=== PATIENT | female | born 1940 | race American Indian/Alaskan Native ===

== ENCOUNTER 2017-01-09 20:41 | Emergency (ER) | payer MEDICARE ==
[2017-01-09] MEDS ORDERED: BABY ASPIRIN PO ONE (21:22)
--- NOTE | 2017-01-09 21:23 | Emergency Department Report ---
ED Chest Pain HPI - General Chief Complaint: Chest Pain Stated Complaint: CHEST PAIN Time Seen by Provider: 01/09/17 21:21 Source: patient Mode of arrival: Stretcher Limitations: No Limitations - History of Present Illness Initial Comments: Patient is a 76-year-old woman, poor historian, with a h/o HTN, CAD, HLD, and psychiatric issues, coming from [facility] complaining of chest pain. Patient reports that the chest pain started around 8 PM while she was sitting, pain is left-sided, intermittent, with no radiation or migration. Currently patient reports the chest pain has resolved. Associated nausea no vomiting. Otherwise no fevers, chills, PHILIPPE, dizziness, vomiting, SOB, abd pain, extremity pain, diaphoresis, travel, or sick contacts. Patient's meds: Lipitor Xarelto Toprol Vistaril Triage sheet from [facility] reports patient had chest pain radiating to the L arm, however, patient denies L arm pain - Related Data Allergies Allergy/AdvReac Type Severity Reaction Status Date / Time No Known Allergies Allergy Verified 01/09/17 21:10 Heart Score - HEART Score History: Slightly suspicious EKG: Normal Age: > 65 Risk factors: > 3 risk factors or hx of atherosclerotic disease Troponin: < normal limit HEART Score: 4 ED Review of Systems ROS: Stated complaint: CHEST PAIN Other details as noted in HPI Comment: All other systems reviewed and negative ED Past Medical Hx - Past Medical History Previous Medical History?: Yes Hx Hypertension: Yes Hx Psychiatric Treatment: Yes - Surgical History Past Surgical History?: Yes Hx Coronary Stent: Yes - Social History Smoking Status: Never Smoker Substance Use Type: None ED Physical Exam - General Limitations: No Limitations General appearance: alert, in no apparent distress - Head Head exam: Present: atraumatic, normocephalic - Eye Eye exam: Present: normal appearance - ENT ENT exam: Present: mucous membranes moist - Neck Neck exam: Present: normal inspection - Respiratory Respiratory exam: Present: normal lung sounds bilaterally. Absent: respiratory distress - Cardiovascular Cardiovascular Exam: Present: regular rate, normal rhythm. Absent: systolic murmur, diastolic murmur, rubs, gallop - GI/Abdominal GI/Abdominal exam: Present: soft, normal bowel sounds - Extremities Exam Extremities exam: Present: normal inspection - Back Exam Back exam: Present: normal inspection - Neurological Exam Neurological exam: Present: alert, oriented X3 - Psychiatric Psychiatric exam: Present: normal affect, normal mood - Skin Skin exam: Present: warm, dry, intact, normal color. Absent: rash ED Course Vital Signs 01/09/17 01/10/17 21:11 02:46 Temperature 98 F Pulse Rate 61 74 Respiratory 16 16 Rate Blood Pressure 165/62 Blood Pressure 147/62 [Left] O2 Sat by Pulse 98 95 Oximetry TITI score - Titi Score Age > 65: (1) Yes Aspirin use within the Past 7 Days: (0) No 3 or more CAD Risk Factors: (1) Yes 2 or more Angina events in past 24 hrs: (0) No Known CAD with more than 50% Stenosis: (0) No Elevated Cardiac Markers: (0) No ST Deviation Greater than 0.5mm: (0) No TITI Score: 2 ED Medical Decision Making - Lab Data Result diagrams: 01/09/17 21:42 01/09/17 21:42 - EKG Data -: EKG Interpreted by Me - EKG Data 01/09/17 21:23 EKG 2100, normal sinus rhythm at 63 bpm, QTC 401 ms, normal axis, no LVH, no ST changes, no STEMI - Radiology Data Radiology results: report reviewed, image reviewed CXR: No acute cardiopulmonary disease as visualized by me - Medical Decision Making Pt has had no chest pain in the ED Troponins negative x 2 6 hrs apart. Pt to follow up with PMD/ Director Trial Critical care attestation.: If time is entered above; I have spent that time in minutes in the direct care of this critically ill patient, excluding procedure time. ED Disposition Clinical Impression: Chest wall pain Disposition: DC-01 TO HOME OR SELFCARE Is pt being admited?: No Condition: Stable Instructions: Chest Pain (ED)
[2017-01-09 22:04] LABS: Eosinophils % (Auto) 2.2 % (0.0-4.3); Hemoglobin 12.3 gm/dl (10.1-14.3); Mean Corpuscular HGB Conc 32 % (30-34); Mean Corpuscular Volume 80 fl (79-97); Platelet Count 303 K/mm3 (140-440); Red Blood Count 4.75 M/mm3 (3.65-5.03); Red Cell Distribution Width 16.9 % (13.2-15.2); White Blood Count 7.1 K/mm3 (4.5-11.0)
[2017-01-09 22:06] LABS: Mean Corpuscular Hemoglobin 26 pg (28-32)
[2017-01-09 22:15] LABS: INR 2.23 (0.87-1.13)
[2017-01-09 22:16] LABS: Partial Thromboplastin Time 50.7 Sec. (24.2-36.6)
[2017-01-09 22:32] LABS: Anion Gap 22 mmol/L; BUN/Creatinine Ratio 17.27; Blood Urea Nitrogen 19 mg/dL (7-17); Calcium 9.5 mg/dL (8.4-10.2); Carbon Dioxide 21 mmol/L (22-30); Chloride 106.6 mmol/L (98-107); Glucose 91 mg/dL (65-100); Potassium 4.3 mmol/L (3.6-5.0); Sodium 145 mmol/L (137-145)
--- NOTE | 2017-01-09 22:42 | XRay Report ---
FINAL REPORT EXAM: XR CHEST ROUTINE 2V HISTORY: chest pain TECHNIQUE: 2 views of the chest. PRIORS: None. FINDINGS: The cardiomediastinal silhouette appears normal. The lungs are clear. The bones and soft tissues are unremarkable. IMPRESSION: No evidence of acute cardiopulmonary disease
[2017-01-10 05:33] VITALS: BP 142/78
== END 2017-01-10 05:15 | disposition home or self-care (01) ==
LOC: ED 20:41
DX: R07.89 Other chest pain (principal); I10 Essential (primary) hypertension
CPT/HCPCS: 36415; 71020; 80048; 84484; 85025; 85610; 85730; 93005; 93010; 99285